=== PATIENT | male | born 1960 | race Hispanic/Latino ===

== ENCOUNTER 2016-11-10 11:37 | Emergency (ER) | payer SELFPAY ==
[~2016-11-10] VITALS: Ht 157.5 cm; Wt 80.0 kg
[2016-11-10] MEDS ORDERED: IBUPROFEN600 MG PO (12:46)
[2016-11-10 13:04] VITALS: BP 154/99
== END 2016-11-10 13:06 | disposition home or self-care (01) | DRG 605 ==
LOC: ED 11:37
DX: S60.222A Contusion of left hand, initial encounter (principal); W23.1XXA Caught, crushed, jammed, or pinched between stationary objects, initial encounter; Y93.89 Activity, other specified; Y92.89 Other specified places as the place of occurrence of the external cause

== ENCOUNTER 2017-03-20 10:22 | Emergency (ER) | payer SELFPAY ==
[~2017-03-20] VITALS: Ht 157.5 cm; Wt 84.1 kg
[~2017-03-20 10:22] MED LIST: IBUPROFEN600 MG PO
[2017-03-20] MEDS ORDERED: MOTRIN800 MG PO (10:48)
[2017-03-20] MEDS ORDERED: LORTAB 5-325 MG1 TAB PO (10:48)
[2017-03-20] MEDS ORDERED: PENICILLN VK500 MG PO (10:48)
[2017-03-20 10:54] VITALS: BP 149/84
== END 2017-03-20 10:54 | disposition home or self-care (01) | DRG 159 ==
LOC: ED 10:22
DX: K08.89 Other specified disorders of teeth and supporting structures (principal); R60.9 Edema, unspecified

== ENCOUNTER 2018-01-31 09:38 | Emergency (ER) | payer SELFPAY ==
[~2018-01-31] VITALS: Ht 157.5 cm; Wt 85.0 kg
[~2018-01-31 09:38] MED LIST changes: +LORTAB 5-325 MG1 TAB PO; +MOTRIN800 MG PO; +PENICILLN VK500 MG PO
[2018-01-31 12:36] VITALS: BP 140/80
== END 2018-01-31 12:25 | disposition home or self-care (01) | DRG 552 ==
LOC: ED 09:38
DX: M54.5 Low back pain (principal); S80.02XA Contusion of left knee, initial encounter; W19.XXXA Unspecified fall, initial encounter